=== PATIENT | male | born 1935 | race Caucasian/White ===

== ENCOUNTER → 2016-09-05 | Outpatient (CLI) | payer MEDICARE ==
[~2016-09-05] MED LIST: AMIO200T42 PO; ASPI-515 PO; ATOR20TA9 PO; CARV-39 PO; DIGO125T PO; DOXA2TAB9 PO; FINA5TAB4 PO; FISH OIL PO; LEVO100T41 PO; LOSA50TA6 PO; MEXI150C PO; OMEP-110 PO; SPIR25TA3 PO; TAMS-11 PO; WARFARIN PO
== END | disposition home or self-care (01) ==
LOC: CFH 14:53
PROVIDERS: ATTEND Internal Medicine Cardiovascular Disease
DX: I08.3 Combined rheumatic disorders of mitral, aortic and tricuspid valves (principal); I37.1 Nonrheumatic pulmonary valve insufficiency; I51.7 Cardiomegaly
CPT/HCPCS: 93306

== ENCOUNTER → 2016-10-11 | Outpatient (CLI) | payer MEDICARE ==
[~2016-10-11] MED LIST changes: +REGADENOSON 0.4 MG/5 ML SYRINGE ONE
== END | disposition home or self-care (01) ==
LOC: CFH 08:15
PROVIDERS: ATTEND Nurse Practitioner Family
DX: R07.89 Other chest pain (principal)
CPT/HCPCS: 78452; 93017; A9502; J2785

== ENCOUNTER 2017-10-30 06:50 | Day surgery (SDC) | payer MEDICARE ==
[~2017-10-30] VITALS: Ht 180.3 cm; Wt 76.3 kg
[~2017-10-30 06:50] MED LIST changes: -LEVO100T41 PO; +LEVO100T74 PO; -REGADENOSON 0.4 MG/5 ML SYRINGE ONE
[2017-10-30] MEDS ORDERED: LACTATED RINGERS 1,000 ML IV SCH (07:37)
[2017-10-30] MEDS ORDERED: MIDAZOLAM 1 MG/ML, 2ML ONE (07:59)
[2017-10-30] MEDS ORDERED: FENTANYL PF 100 MCG/2ML ONE (08:00)
[2017-10-30 08:07] VITALS: BP 115/73
[2017-10-30] MEDS ORDERED: LOSA25TA5 PO (08:15)
[2017-10-30] MEDS ORDERED: PROPOFOL 50 ML ONE (08:19)
[2017-10-30] MEDS ORDERED: KETAMINE 100 MG/ML, 5ML ONE (08:24)
[2017-10-30] MEDS ORDERED: NEOSTIGMINE 1 MG/ML, 10ML ONE (08:24)
[2017-10-30] MEDS ORDERED: MEPERIDINE/PF 25MG/0.5ML IVPush PRN (08:30)
[2017-10-30] MEDS ORDERED: HALOPERIDOL 5 MG/ML IV PRN (08:30)
[2017-10-30] MEDS ORDERED: OXYcodone 5 MG/5 ML ORAL.SOL UDC PO PRN (08:30)
[2017-10-30] MEDS ORDERED: ONDANSETRON ODT 8 MG PO PRN (08:30)
[2017-10-30] MEDS ORDERED: MORPHINE SULFATE 4 MG/ML, 1ML IVPush PRN (08:30)
[2017-10-30] MEDS ORDERED: hydrALAzine 20 MG/ML, 1ML IV PRN (08:30)
[2017-10-30] MEDS ORDERED: FENTANYL PF 100 MCG/2ML IV PRN (08:30)
[2017-10-30] MEDS ORDERED: ACETAMINOPHEN 325 MG TABLET PO PRN (08:30)
[2017-10-30] MEDS ORDERED: LABETALOL 5MG/ML, 20ML IV PRN (08:30)
[2017-10-30] MEDS ORDERED: DEXAMETHASONE 4 MG/ML, 1ML ONE (08:33)
[2017-10-30] MEDS ORDERED: ONDANSETRON 2MG/ML, 2ML ONE (08:33)
== END 2017-10-30 11:00 ==
LOC: OUT 06:50
PROVIDERS: ATTEND Internal Medicine Geriatric Medicine
DX: K31.89 Other diseases of stomach and duodenum (principal); K86.9 Disease of pancreas, unspecified; E78.5 Hyperlipidemia, unspecified; K21.9 Gastro-esophageal reflux disease without esophagitis; I10 Essential (primary) hypertension; F41.9 Anxiety disorder, unspecified; Z87.39 Personal history of other diseases of the musculoskeletal system and connective tissue; Z85.46 Personal history of malignant neoplasm of prostate; Z90.49 Acquired absence of other specified parts of digestive tract; Z95.0 Presence of cardiac pacemaker; Z98.890 Other specified postprocedural states; Z87.891 Personal history of nicotine dependence
CPT/HCPCS: 43238; 43239; 88172; 88173; 88305; 88307; 93005; J1100; J2250; J2405; J2704; J2710; J3010; J7120; 88341; 88342; G0461

== ENCOUNTER 2017-12-25 06:45 | Day surgery (SDC) | payer MEDICARE ==
[~2017-12-25] VITALS: Ht 180.3 cm; Wt 72.5 kg
[~2017-12-25 06:45] MED LIST changes: +LOSA25TA6 PO; -LOSA50TA6 PO; +LOSA50TA7 PO; -SPIR25TA3 PO; +SPIR25TA5 PO
[2017-12-25] MEDS ORDERED: SODIUM CHLORIDE 0.9% 1,000 ML IV SCH (07:12)
[2017-12-25] MEDS ORDERED: CEFAZOLIN PMX 1GM/50ML 50 ML IV STA (07:12)
[2017-12-25 07:32] VITALS: BP 110/71
[2017-12-25] MEDS ORDERED: LIDOCAINE-MPF 2%, 2ML ONE (07:57)
[2017-12-25] MEDS ORDERED: PLEASE ENTER HEIGHT AND WEIGHT MC SCH (08:00)
[2017-12-25] MEDS ORDERED: MIDAZOLAM 1 MG/ML, 5ML ONE ×2 (08:17)
[2017-12-25] MEDS ORDERED: FLUMAZENIL 0.1 MG/1 ML, 5ML ONE (08:17)
[2017-12-25] MEDS ORDERED: NALOXONE 1 MG/ML, 2ML ONE (08:17)
[2017-12-25] MEDS ORDERED: FENTANYL PF 100 MCG/2ML ONE (08:17)
== END 2017-12-25 10:50 | disposition home or self-care (01) ==
LOC: OUT 06:45
PROVIDERS: ATTEND Specialist
DX: C83.30 Diffuse large B-cell lymphoma, unspecified site (principal); I25.10 Atherosclerotic heart disease of native coronary artery without angina pectoris; I10 Essential (primary) hypertension; E11.9 Type 2 diabetes mellitus without complications; Z88.1 Allergy status to other antibiotic agents; Z90.49 Acquired absence of other specified parts of digestive tract; Z95.0 Presence of cardiac pacemaker; Z87.891 Personal history of nicotine dependence
CPT/HCPCS: 36561; 76937; 77001; 99156; 99157; C1769; C1788; J0690; J1642; J2250; J3010; J3490; J7030; J2310

== ENCOUNTER 2018-01-29 05:25 | Observation (INO) | payer MEDICARE ==
[~2018-01-29] VITALS: Ht 185.4 cm; Wt 74.7 kg
[2018-01-29] MEDS ORDERED: AMIODARONE 900 MG in DEXTROSE 5% 482 ML IV PRN (05:34)
[2018-01-29] MEDS ORDERED: PLEASE ENTER HEIGHT AND WEIGHT MC SCH (06:00)
[2018-01-29] MEDS ORDERED: FILTER 0.22 MICRON IV PRN (06:00)
[2018-01-29 06:10] LABS: MEAN CORPUSCULAR HEMOGLOBIN 27.9 pg (27.5-34.5); MEAN CORPUSCULAR HGB CONC 32.5 g/dL (33.2-36.2); MEAN CORPUSCULAR VOLUME 85.9 fL (81-97); PLATELET COUNT 195 x10^3/uL (130-400); RED BLOOD COUNT 4.79 x10^6/uL (4.38-5.82); RED CELL DISTRIBUTION WIDTH 18.1 % (9.4-14.8)
[2018-01-29 06:18] LABS: ALANINE AMINOTRANSFERASE 18 U/L (12-78); ALBUMIN 3.3 g/dL (3.4-5.0); ANION GAP 7 mmol/L (5-15); CALCIUM 8.5 mg/dL (8.5-10.1); CHLORIDE 107 mmol/L (98-107); CREATININE 0.85 mg/dL (0.7-1.3)
[2018-01-29 06:20] LABS: INTERNATIONAL NORMALIZED RATIO 1.07 (0.93-1.1)
[2018-01-29 06:23] LABS: ALKALINE PHOSPHATASE 145 U/L (45-117); BILIRUBIN,TOTAL 0.4 mg/dL (0.2-1.0); TOTAL PROTEIN 7.2 g/dL (6.4-8.2)
[2018-01-29 06:28] LABS: T4 (THYROXINE) 13.1 mcg/dL (4.5-12.1)
[2018-01-29 06:33] LABS: MD YES
[2018-01-29 06:35] LABS: <PLATELET ESTIMATE> ADEQUATE; <PLT MORPHOLOGY> NORMAL PLT MORPH; ANISOCYTOSIS 1+; BAND#(MANUAL) 1.18 x10^3/uL; BANDS%(MANUAL) 6 % (0-7); LYMPH#(MANUAL) 1.38 x10^3/uL (1-3.4); LYMPHS% (MANUAL) 7 % (22-44); METAMYELOCYTES# (MANUAL) 0.39 x10^3/uL (0-0); METAMYELOCYTES% (MANUAL) 2 % (0-1); MICROCYTOSIS 1+; MONOS#(MANUAL) 0.79 x10^3/uL (0.3-2.7); MONOS% (MANUAL) 4 % (2-9); MYELOCYTES# (MANUAL) 0.39 x10^3/uL (0-0); MYELOCYTES% (MANUAL) 2 % (0-0); OVALOCYTES 1+; SEG#(MANUAL) 15.56 x10^3/uL (1.8-6.8); SEGS% (MANUAL) 79 % (42-75)
[2018-01-29] MEDS ORDERED: OMNIPAQUE 350 MG/ML, 100ML BOTTLE ONE (07:37)
[2018-01-29] MEDS ORDERED: ONDANSETRON 2MG/ML, 2ML IVPush PRN (10:00)
[2018-01-29] MEDS ORDERED: POLYETHYLENE GLYCOL 17 GM PACKET PO PRN (10:00)
[2018-01-29] MEDS ORDERED: BISACODYL 10 MG SUPP PR PRN (10:00)
[2018-01-29] MEDS ORDERED: ACETAMINOPHEN 325 MG TABLET PO PRN (10:00)
[2018-01-29] MEDS ORDERED: ENALAPRILAT 1.25 MG/ML, 2ML IVPush PRN (10:00)
[2018-01-29] MEDS ORDERED: DOCUSATE 100 MG CAPSULE PO PRN (10:00)
[2018-01-29] MEDS ORDERED: NITROGLYCERIN 0.4 MG BOTTLE (25 TABS) SL PRN (10:00)
[2018-01-29] MEDS ORDERED: ONDANSETRON ODT 4 MG PO PRN (10:00)
[2018-01-29 10:35] VITALS: BP 95/60
[2018-01-29] MEDS ORDERED: AMIODARONE 200 MG TABLET ONE (10:55)
[2018-01-29] MEDS ORDERED: ENOXAPARIN 40 MG/0.4 ML ONE (10:55)
[2018-01-29] MEDS ORDERED: MEXILETINE 150 MG CAPSULE ONE (10:55)
[2018-01-29] MEDS: MEXILETINE 150 MG CAPSULE PO SCH ×2 (10:58→19:41)
[2018-01-29] MEDS: ENOXAPARIN 40 MG/0.4 ML SQ SCH (10:58)
[2018-01-29] MEDS: AMIODARONE 200 MG TABLET PO SCH ×2 (10:58→20:20)
[2018-01-29 12:26] LABS: TROPONIN I 0.869 ng/mL (0.000-0.045)
[2018-01-29 15:56] VITALS: BP 102/62
[2018-01-29 17:52] LABS: MICROSCOPIC NOT IND
[2018-01-29 18:09] LABS: CULTURE INDICATED? NO
[2018-01-29 18:21] LABS: TROPONIN I 0.845 ng/mL (0.000-0.045)
[2018-01-29 19:35] VITALS: BP 98/63
[2018-01-29] MEDS ORDERED: ATORVASTATIN 20 MG TABLET PO SCH (21:00)
[2018-01-29] MEDS ORDERED: OMEPRAZOLE 20 MG CAPSULE.DR PO SCH (21:00)
[2018-01-30 02:18] VITALS: BP 117/70
[2018-01-30] MEDS: MEXILETINE 150 MG CAPSULE PO SCH ×2 (02:39→11:41)
[2018-01-30 05:15] LABS: MEAN CORPUSCULAR HEMOGLOBIN 28.1 pg (27.5-34.5); MEAN CORPUSCULAR HGB CONC 32.6 g/dL (33.2-36.2); MEAN CORPUSCULAR VOLUME 86.3 fL (81-97); MEAN PLATELET VOLUME 8.2 fL (7.4-10.4); PLATELET COUNT 157 x10^3/uL (130-400); RED BLOOD COUNT 4.49 x10^6/uL (4.38-5.82); RED CELL DISTRIBUTION WIDTH 18.2 % (9.4-14.8)
[2018-01-30 05:19] LABS: ANION GAP 7 mmol/L (5-15); CALCIUM 8.3 mg/dL (8.5-10.1); CHLORIDE 108 mmol/L (98-107); CREATININE 0.76 mg/dL (0.7-1.3)
[2018-01-30 05:52] LABS: MD YES
[2018-01-30 05:55] LABS: <PLATELET ESTIMATE> ADEQUATE; <PLT MORPHOLOGY> NORMAL PLT MORPH; ANISOCYTOSIS 1+; BAND#(MANUAL) 0.65 x10^3/uL; BANDS%(MANUAL) 3 % (0-7); LYMPH#(MANUAL) 0.43 x10^3/uL (1-3.4); LYMPHS% (MANUAL) 2 % (22-44); METAMYELOCYTES# (MANUAL) 0.22 x10^3/uL (0-0); METAMYELOCYTES% (MANUAL) 1 % (0-1); MICROCYTOSIS 1+; MONOS#(MANUAL) 0.43 x10^3/uL (0.3-2.7); MONOS% (MANUAL) 2 % (2-9); OVALOCYTES 1+; SEG#(MANUAL) 19.78 x10^3/uL (1.8-6.8); SEGS% (MANUAL) 92 % (42-75)
[2018-01-30 05:56] LABS: TOXIC GRAN 1+
[2018-01-30 06:47] VITALS: BP 104/64
[2018-01-30] MEDS ORDERED: MAGNESIUM SULFATE 1 GM in SODIUM CHLORIDE 0.9% 50 ML IV ONE (07:30)
[2018-01-30] MEDS: AMIODARONE 200 MG TABLET PO SCH (08:34)
[2018-01-30] MEDS ORDERED: ASPIRIN 81 MG TABLET EC PO SCH (09:00)
[2018-01-30] MEDS ORDERED: OMEGA-3/FISH OIL CAPSULE PO SCH (09:00)
[2018-01-30] MEDS: ENOXAPARIN 40 MG/0.4 ML SQ SCH (10:03)
[2018-01-30 12:09] VITALS: BP 116/71
[2018-01-30] MEDS ORDERED: MEXI150C PO (13:50)
== END 2018-01-30 15:00 | disposition home or self-care (01) ==
LOC: ED 05:56 → EDIP 07:54 → INTOOBSV 07:54 → 5SO 12:02 → DCLOUNGE 01-30 14:49
PROVIDERS: ADMIT Family Medicine; ATTEND Family Medicine
DX: R07.9 Chest pain, unspecified (principal); I47.2 Ventricular tachycardia; I11.0 Hypertensive heart disease with heart failure; D72.829 Elevated white blood cell count, unspecified; C85.90 Non-Hodgkin lymphoma, unspecified, unspecified site; E03.9 Hypothyroidism, unspecified; E78.5 Hyperlipidemia, unspecified; I25.5 Ischemic cardiomyopathy; I48.2 Chronic atrial fibrillation; I50.20 Unspecified systolic (congestive) heart failure; N40.0 Benign prostatic hyperplasia without lower urinary tract symptoms; Z79.01 Long term (current) use of anticoagulants; Z80.0 Family history of malignant neoplasm of digestive organs; Z87.891 Personal history of nicotine dependence; Z95.0 Presence of cardiac pacemaker
CPT/HCPCS: 36415; 71045; 71275; 80048; 80053; 81003; 83735; 84436; 84443; 84484; 85025; 85610; 85730; 87040; 93005; 93306; 96365; 96366; 96367; 96372; 99285; G0378; J0282; J1650; J3475; J7060; Q9967

== ENCOUNTER → 2018-03-13 | Outpatient (CLI) | payer MEDICARE | END | disposition home or self-care (01) | LOC: PETCFH 09:21 | PROVIDERS: ATTEND Specialist | DX: R16.1 Splenomegaly, not elsewhere classified (principal); C85.80 Other specified types of non-Hodgkin lymphoma, unspecified site; C83.33 Diffuse large B-cell lymphoma, intra-abdominal lymph nodes ==

== ENCOUNTER 2018-05-21 12:22 | Outpatient (CLI) | payer MEDICARE ==
[~2018-05-21 12:22] MED LIST changes: +ATOR20TA37 PO; -ATOR20TA9 PO; +LOSA25TA25 PO; -LOSA25TA6 PO; +LOSA50TA14 PO; -LOSA50TA7 PO
== END 2018-05-21 23:59 | disposition home or self-care (01) ==
LOC: PETCFH 12:22
PROVIDERS: ATTEND Specialist
DX: C85.83 Other specified types of non-Hodgkin lymphoma, intra-abdominal lymph nodes (principal); C83.30 Diffuse large B-cell lymphoma, unspecified site
CPT/HCPCS: 78815; A9552

== ENCOUNTER → 2018-07-22 | Outpatient (CLI) | payer MEDICARE ==
[~2018-07-22] MED LIST changes: +LIDOCAINE-MPF 1%, 5ML ONE
== END | disposition home or self-care (01) ==
LOC: RAD 11:33
PROVIDERS: ATTEND Student in an Organized Health Care Education/Training Program
DX: D37.030 Neoplasm of uncertain behavior of the parotid salivary glands (principal)
CPT/HCPCS: 76942; 88173

== ENCOUNTER → 2018-08-21 | Outpatient (CLI) | payer MEDICARE | END | disposition home or self-care (01) | LOC: RAD 12:33 | PROVIDERS: ATTEND Student in an Organized Health Care Education/Training Program | DX: D11.0 Benign neoplasm of parotid gland (principal) | CPT/HCPCS: 42400; 76942; 88305; 88341; 88342 ==

== ENCOUNTER 2019-10-07 12:27 | Outpatient (CLI) | payer MEDICARE ==
[~2019-10-07 12:27] MED LIST changes: -DIGO125T PO; +DIGO125T85 PO; -LIDOCAINE-MPF 1%, 5ML ONE
== END 2019-10-07 23:59 | disposition home or self-care (01) ==
LOC: PETCFH 12:27
PROVIDERS: ATTEND Specialist
DX: C83.33 Diffuse large B-cell lymphoma, intra-abdominal lymph nodes (principal); C85.80 Other specified types of non-Hodgkin lymphoma, unspecified site; C44.92 Squamous cell carcinoma of skin, unspecified; K44.9 Diaphragmatic hernia without obstruction or gangrene; N32.89 Other specified disorders of bladder; I70.0 Atherosclerosis of aorta; M50.30 Other cervical disc degeneration, unspecified cervical region; M17.0 Bilateral primary osteoarthritis of knee; M19.042 Primary osteoarthritis, left hand; M19.041 Primary osteoarthritis, right hand; M11.262 Other chondrocalcinosis, left knee; M11.261 Other chondrocalcinosis, right knee
CPT/HCPCS: 78816; A9552

== ENCOUNTER → 2020-07-06 | Outpatient (CLI) | payer MEDICARE ==
[~2020-07-06] MED LIST changes: -ASPI-515 PO; +ASPI-963 PO
== END | disposition home or self-care (01) ==
LOC: PETCFH 08:31
PROVIDERS: ATTEND Specialist
DX: C83.33 Diffuse large B-cell lymphoma, intra-abdominal lymph nodes (principal); C85.80 Other specified types of non-Hodgkin lymphoma, unspecified site; C43.30 Malignant melanoma of unspecified part of face; E83.52 Hypercalcemia; D70.1 Agranulocytosis secondary to cancer chemotherapy; N32.89 Other specified disorders of bladder; I51.7 Cardiomegaly; Z90.49 Acquired absence of other specified parts of digestive tract
CPT/HCPCS: 78816; A9552